=== PATIENT | female | born 1960 | race Caucasian/White ===

== ENCOUNTER 2018-02-20 08:13 | Emergency (ER) | payer BC ==
--- NOTE | 2018-02-20 09:46 | EDM.PDOC ---
ED HPI GENERAL MEDICAL PROBLEM - General Chief Complaint: Chest Pain Stated Complaint: CHEST PAIN Time Seen by Provider: 02/20/18 08:33 Source of Information: Reports: Patient, RN Notes Reviewed - History of Present Illness INITIAL COMMENTS - FREE TEXT/NARRATIVE: 57-year-old female comes in with palpitations. Was first noticed this last evening and then has had a couple further episodes this morning. He states that it feels like the residual that hits her chest. She has not been aware that her heart is been racing. This pain or difficulty breathing. No abdominal pain nausea or vomiting. She does have history of hypertension. She does not smoke. She does drink one cup of coffee in the morning but otherwise no further caffeine throughout the day. Left Chest Pain Score (Numeric/FACES): 3 - Related Data Allergies Allergy/AdvReac Type Severity Reaction Status Date / Time morphine Allergy Hives Verified 02/20/18 08:22 Home Meds: Home Meds Aspirin [Halfprin] 81 mg PO DAILY 02/20/18 [History] Lisinopril 40 mg PO DAILY 02/20/18 [History] hydroCHLOROthiazide [Hydrochlorothiazide] 25 mg PO DAILY 02/20/18 [History] metFORMIN [Glucophage] 1,000 mg PO DAILY 02/20/18 [History] Past Medical History Cardiovascular History: Reports: Hypertension Endocrine/Metabolic History: Reports: Diabetes, Type II Social & Family History - Tobacco Use Smoking Status *Q: Never Smoker - Caffeine Use Caffeine Use: Reports: Coffee Caffeine Use Comment: 1 cup coffee daily - Recreational Drug Use Recreational Drug Use: No Drug Use in Last 12 Months: No ED ROS GENERAL - Review of Systems Review Of Systems: See Below Constitutional: Denies: Fever, Chills, Diaphoresis HEENT: Reports: No Symptoms Respiratory: Denies: Shortness of Breath, Pleuritic Chest Pain Cardiovascular: Denies: Chest Pain GI/Abdominal: Denies: Abdominal Pain, Nausea, Vomiting Musculoskeletal: Denies: Neck Pain, Shoulder Pain, Arm Pain Skin: Reports: No Symptoms Neurological: Reports: No Symptoms. Denies: Dizziness ED EXAM, GENERAL - Physical Exam Exam: See Below General Appearance: Alert, No Apparent Distress Eye Exam: Bilateral Eye: PERRL Throat/Mouth: Normal Inspection, Normal Oropharynx Head: Atraumatic Neck: Supple Respiratory/Chest: No Respiratory Distress, Lungs Clear, Normal Breath Sounds Cardiovascular: Regular Rate, Rhythm GI/Abdominal: Soft, Non-Tender Extremities: Normal Inspection. No: Pedal Edema, Leg Pain Neurological: Alert, Oriented, No Motor/Sensory Deficits Skin Exam: Warm, Dry, Normal Color Course - Vital Signs Last Recorded V/S: Last Vital Signs Temp 97.7 F 02/20/18 08:25 Pulse 65 02/20/18 08:25 Resp BP 133/69 02/20/18 08:25 Pulse Ox 99 02/20/18 08:25 - Orders/Labs/Meds Orders: Active Orders 24 hr Category Date Time Status EKG 12 Lead [EKG Documentation Completion] [] STAT Care 02/20/18 08:42 Active Holter Monitor 48 Hours [] .PRN Care 02/20/18 09:41 Active Labs: Laboratory Tests 02/20/18 02/20/18 Range/Units 08:35 08:35 WBC 6.03 (3.98-10.04) K/mm3 RBC 4.16 (3.98-5.22) M/mm3 Hgb 12.9 (11.2-15.7) gm/L Hct 40.4 (34.1-44.9) % MCV 97.1 H (79.4-94.8) fl MCH 31.0 (25.6-32.2) pg MCHC 31.9 L (32.2-35.5) g/dl RDW Std Deviation 47.2 H (36.4-46.3) fL Plt Count 219 (182-369) K/mm3 MPV 10.5 (9.4-12.3) fl Neut % (Auto) 49.9 (34.0-71.1) % Lymph % (Auto) 37.0 (19.3-51.7) % [place] % (Auto) 10.9 (4.7-12.5) % Eos % (Auto) 1.8 (0.7-5.8) Baso % (Auto) 0.2 (0.1-1.2) % Neut # (Auto) 3.01 (1.56-6.13) K/mm3 Lymph # (Auto) 2.23 (1.18-3.74) K/mm3 [place] # (Auto) 0.66 H (0.24-0.36) K/mm3 Eos # (Auto) 0.11 (0.04-0.36) K/mm3 Baso # (Auto) 0.01 (0.01-0.08) K/mm3 Sodium 137 (136-145) mEq/L Potassium 4.1 (3.5-5.1) mEq/L Chloride 102 (98-107) mEq/L Carbon Dioxide 29 (21-32) mEq/L Anion Gap 10.1 (5-15) BUN 23 H (7-18) mg/dL Creatinine 1.1 H (0.55-1.02) mg/dL Est Cr Clr Drug Dosing 52.82 mL/min Estimated GFR (MDRD) 51 (>60) mL/min BUN/Creatinine Ratio 20.9 H (14-18) Glucose 195 H (74-106) mg/dL Calcium 9.4 (8.5-10.1) mg/dL Total Bilirubin 0.4 (0.2-1.0) mg/dL AST 61 H (15-37) U/L ALT 80 H (14-59) U/L Alkaline Phosphatase 98 (46-116) U/L Total Protein 8.2 (6.4-8.2) g/dl Albumin 3.7 (3.4-5.0) g/dl Globulin 4.5 gm/dL Albumin/Globulin Ratio 0.8 L (1-2) - Re-Assessments/Exams Free Text/Narrative Re-Assessment/Exam: 02/20/18 13:53 Labs chest x-ray were normal. She's been in sinus rhythm while here in the ED rate in the 60s and 70s with no ectopy seen. Historically she is having either PVCs or PACs. In her home with a 48 hour Holter monitor, discharge instructions as documented Departure - Departure Time of Disposition: 09:44 Disposition: Home, Self-Care 01 Condition: Fair Clinical Impression: Palpitations Instructions: Palpitations, [id number] Referrals: PCP,None [Primary Care Provider] - Forms: ED Department Discharge Additional Instructions: 48 hour Holter monitor, continue current medications as prescribed, your heart and lungs are checking out well today, your lab work was all relatively normal, the symptoms you're describing are compatible with what we call premature ventricular contractions which are typically benign. The Holter monitor should better sort that out. Follow-up with your regular medical provider about 3-5 days after the monitor is taken off for results, return to ED as needed if symptoms worsening in any way. - My Orders Last 24 Hours: My Active Orders 02/20/18 08:42 EKG 12 Lead [EKG Documentation Completion] [RC] STAT 02/20/18 09:41 Holter Monitor 48 Hours [RC] .PRN - Assessment/Plan Last 24 Hours: My Active Orders 02/20/18 08:42 EKG 12 Lead [EKG Documentation Completion] [RC] STAT 02/20/18 09:41 Holter Monitor 48 Hours [RC] .PRN
--- NOTE | 2018-02-20 09:48 | CR ---
Chest: Portable view of the chest was obtained. Comparison: No prior study. Heart size is normal. Tortuous thoracic aorta is seen. Lungs are clear. Bony structures are grossly intact. Impression: 1. Nothing acute is appreciated on portable chest x-ray. Diagnostic code #1
== END 2018-02-20 10:10 | disposition home or self-care (01) ==
LOC: JD.ED 08:13
DX: R00.2 Palpitations (principal); E11.9 Type 2 diabetes mellitus without complications; Z88.5 Allergy status to narcotic agent; Z79.899 Other long term (current) drug therapy; Z79.82 Long term (current) use of aspirin
CPT/HCPCS: 36415; 71045; 71045-26; 80053; 85025; 93005; 93010; 93225; 93226; 99284-25; 99285-25